=== PATIENT | male | born 1935 | race Caucasian/White ===

== ENCOUNTER 2023-02-28 10:24 | Outpatient (CLI) | payer MEDICARE, SELFPAY ==
[2023-02-28 18:16] LABS: Basophils Absolute Auto 0.1 K/mm3 (0.0-0.1); Basophils Percent Auto 0.9 % (0.2-1.2); Eosinophils Absolute Auto 0.4 K/mm3 (0-0.3); Hematocrit 41.6 % (42.0-52.0); Hemoglobin 13.1 g/dL (14.0-18.0); Immature Granulocyte Absolute 0.02 K/mm3 (0.00-0.031); Immature Granulocyte Percent A 0.3 % (0-0.5); Lymphocytes Absolute Auto 0.96 K/mm3 (0.9-3.2); Mean Corpuscular HGB Conc 31.5 g/dl (32-36); Mean Corpuscular Hemoglobin 29.4 pg (26-34); Mean Corpuscular Volume 93.5 fl (80-100); Mean Platelet Volume 10.6 fl (7.4-10.4); Monocytes Absolute Auto 0.6 K/mm3 (0.1-0.6); Neutrophils Absolute Auto 5.9 K/mm3 (1.3-6.7); Neutrophils Percent Auto 73.8 % (45.5-73.1); Platelet Count Result 201 k/mm3 (150-375); Red Blood Count 4.45 M/mm3 (4.6-6.20); Red Cell Distribution Width 14.2 % (11.5-14.5)
[2023-02-28 18:27] LABS: Anion Gap 7 mmol/L (8-16); Blood Urea Nitrogen 30 mg/dL (9-20); Calcium 9.4 mg/dL (8.4-10.2); Carbon Dioxide 28 mmol/L (22-30); Chloride 105 mmol/L (98-107); Estimated Glomerular Filt Rate > 60; Glucose 114 mg/dL (65-110); Potassium 4.6 mmol/L (3.4-5.0); Sodium 140 mmol/L (137-145)
== END 2023-02-28 10:25 | disposition home or self-care (01) ==
PROVIDERS: PCP Internal Medicine; Visit Provider Internal Medicine
DX: R07.9 Chest pain, unspecified (principal)
CPT/HCPCS: 36415; 80048; 85025

== ENCOUNTER 2023-04-24 11:00 | Outpatient (RCR) | payer MEDICARE, SELFPAY | END 2023-04-25 10:07 | disposition home or self-care (01) | LOC: ANHCPREHAB 11:00 | PROVIDERS: PCP Internal Medicine; Visit Provider Internal Medicine Cardiovascular Disease | DX: Z95.2 Presence of prosthetic heart valve (principal) | CPT/HCPCS: 93798 ==

== ENCOUNTER 2024-04-04 10:12 | Emergency (ER) | payer MEDICARE, SELFPAY ==
[2024-04-04 10:22] VITALS: BP 151/87; PULSE 70; RESP 16; TEMP 37.1; O2SAT 100
--- NOTE | 2024-04-04 10:30 | ED.GENADULT ---
HPI - General Adult General Chief complaint: Extremity Injury, Upper Stated complaint: Left Hand Swelling Time Seen by Provider: 04/04/24 10:30 Source: patient, RN notes reviewed and old records reviewed Mode of arrival: ambulatory Limitations: no limitations History of Present Illness HPI narrative: 89 year old male accompanied by family member with complaints of weed eating yesterday and developed area of bruising swelling along radial aspect of his left dorsal left hand and is itchy and has some warmth.. Patient reports that he thinks he must of gotten bit by something but is unsure what. Patient reports that he is on blood thinner daily and bruises easily. MD complaint: left hand swollen, bruised with some warmth and itchy Onset (ago): day(s) (since yesterday ) Location: left and upper extremity (dorsal hand) Severity: mild Treatments prior to arrival: cold therapy Related Data Home Medications Medication Instructions Recorded Confirmed atorvastatin 20 mg tablet mg 04/04/24 clopidogrel 75 mg tablet mg 04/04/24 losartan 25 mg tablet mg 04/04/24 meloxicam 7.5 mg tablet mg 04/04/24 Allergies Allergy/AdvReac Type Severity Reaction Status Date / Time No Known Drug Allergies Allergy Unknown Verified 03/28/17 13:30 Review of Systems Review of Systems: CONSTITUTIONAL: Denies fever, chills, or sweats. EYES: Denies visual changes, redness, or discharge. ENT: Denies rhinorrhea, congestion, sore throat, or otalgia. CARDIOVASCULAR: Denies chest pain, palpitations, or edema. RESPIRATORY: Denies cough or dyspnea. GASTROINTESTINAL: Denies abdominal pain, nausea, vomiting, or diarrhea. GENITOURINARY: Denies dysuria or hematuria. SKIN: positive to left dorsal hand radial aspect with increased bruising and itching and some mild warmth MUSCULOSKELETAL: Denies back pain, joint pain, or myalgia. NEUROLOGIC: Denies headache, numbness, or weakness. PSYCHIATRIC: Denies anxiety or depression. 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 Hyperlipidemia Hypertension Myocardial infarction 1987 Prostate cancer Surgical History Surgical History History of cataract surgery bilateral History of open heart surgery 1987 Hx of inguinal hernia repair Hx of prostatectomy Family History Family History Father Heart disease Heart attack Mother Diabetes mellitus Pulmonary disease Social History Social History Smoking packs per day: 1 Smoking cigarettes per day: 20.0 Years smoked: 3 Smoking pack-years: 3.00 Smoking status: Former smoker Alcohol intake: current Alcohol use details: rare Substance use type: does not use Occupation/Education: retired Gender identity (if verbalized by the patient): Male Comments At time of signature, agree with nursing past medical, surgical, social and family history. There is no relevant family history pertinent to the presenting complaint Exam Narrative: GENERAL: Well-appearing, well-nourished, and in no acute distress. HEAD: Normocephalic, atraumatic. EYES: PERRLA and EOMI. ENT: Nares clear, no rhinorrhea or epistaxis. Mucous membranes moist. NECK: Supple.no lymphadenopathy CHEST: Clear to auscultation. No respiratory distress.SAO2 100% on room air HEART: Regular rate and rhythm. No murmur heard. Normal peripheral pulses. ABDOMEN: Soft, nontender, nondistended, normal active bowel sounds. EXTREMITIES: Normal range of motion Left hand dorsal radial aspect with swelling and bruising, itching, some warmth, no acute pain voiced is able to move all finger, strong left radial pulse. reports possible in
== END 2024-04-04 10:50 | disposition home or self-care (01) ==
PROVIDERS: Emergency Provider Registered Nurse; PCP Internal Medicine
DX: S60.562A Insect bite (nonvenomous) of left hand, initial encounter (principal); L08.9 Local infection of the skin and subcutaneous tissue, unspecified; W57.XXXA Bitten or stung by nonvenomous insect and other nonvenomous arthropods, initial encounter; Z87.891 Personal history of nicotine dependence; M19.90 Unspecified osteoarthritis, unspecified site; Z85.46 Personal history of malignant neoplasm of prostate; Z90.79 Acquired absence of other genital organ(s); Z95.2 Presence of prosthetic heart valve
CPT/HCPCS: 99213; G0463